=== PATIENT | female | born 1975 | race Caucasian/White ===

== ENCOUNTER 2018-05-13 11:04 | Outpatient (CLI) | payer BC | END 2018-05-13 11:05 | disposition home or self-care (01) | LOC: BICMAMMO 11:04 | PROVIDERS: ATTEND Obstetrics & Gynecology | DX: Z12.31 Encounter for screening mammogram for malignant neoplasm of breast (principal); R92.1 Mammographic calcification found on diagnostic imaging of breast | CPT/HCPCS: 77063; 77067 ==

== ENCOUNTER → 2024-02-28 | Day surgery (SDC) | payer BC | LOC: BICULT 12:18 | PROVIDERS: ATTEND Obstetrics & Gynecology | PROC: 0HB5XZX Excision of Chest Skin, External Approach, Diagnostic (ICD-10-PCS; principal; 2024-02-28) | PROC: 07B63ZX Excision of Left Axillary Lymphatic, Percutaneous Approach, Diagnostic (ICD-10-PCS; principal; 2024-02-28) | DX: C50.411 Malignant neoplasm of upper-outer quadrant of right female breast (principal); C77.3 Secondary and unspecified malignant neoplasm of axilla and upper limb lymph nodes; R92.8 Other abnormal and inconclusive findings on diagnostic imaging of breast; R92.2 Inconclusive mammogram; Z17.0 Estrogen receptor positive status [ER+] | CPT/HCPCS: 19083; 38505; 76942; 88305; 88341; 88342; 88360 ==

== ENCOUNTER 2024-03-17 09:07 | Outpatient (CLI) | payer BC | END 2024-03-17 09:08 | disposition home or self-care (01) | LOC: BICMRI 09:07 | PROVIDERS: ATTEND Surgery | DX: C50.411 Malignant neoplasm of upper-outer quadrant of right female breast (principal); N64.89 Other specified disorders of breast | CPT/HCPCS: A9577; C8908 ==

== ENCOUNTER 2024-03-20 09:10 | Outpatient (CLI) | payer BC | END 2024-03-20 09:11 | disposition home or self-care (01) | LOC: NM 09:10 | PROVIDERS: ATTEND Surgery | DX: C50.411 Malignant neoplasm of upper-outer quadrant of right female breast (principal) | CPT/HCPCS: 78306; A9503 ==

== ENCOUNTER 2024-03-22 07:50 | Outpatient (CLI) | payer BC ==
[~2024-03-22 07:50] MED LIST: Iopamidol 370 76% 100 ML VIAL ONE
== END 2024-03-22 07:51 | disposition home or self-care (01) ==
LOC: CT 07:50
PROVIDERS: ATTEND Surgery
DX: C50.411 Malignant neoplasm of upper-outer quadrant of right female breast (principal); C77.3 Secondary and unspecified malignant neoplasm of axilla and upper limb lymph nodes
CPT/HCPCS: 71260; 74177